=== PATIENT | female | born 1975 | race Caucasian/White ===

== ENCOUNTER 2023-03-19 00:31 | Emergency (ER) | payer OTHER ==
[~2023-03-19] VITALS: Ht 165.1 cm; Wt 70.3 kg
--- NOTE | 2023-03-19 00:31 | NUR ---
ARRIVAL PT INTO ER VIA EMS GURNEY WITH NO DISTRESS ON RA. C/O JAW PAIN AND NAUSEA THAT STARTED APPROX 1 HOUR AGO. PT HAS HISTORY OF HEART ATTACK AND CARDIAC STENT 2 YEARS AGO. PT WAS SEEN IN [facility] ER FOR SIMILIAR SYMPTOMS YESTERDAY WITH NO ACUTE FINDINGS. PT TOOK NITRO 0.4MG AT HOME. EMS ADMINISTERED NITRO 0.4MG X2, ZOFRAN 4MG, AND ASPIRIN 324MG. HISTORY AND STATUS OBTAINED. VS AND ASSESSMENT COMPLETE CHARTED. DR BIRD NOTIFIED OF PT ARRIVAL.
[2023-03-19 01:01] VITALS: BP 148/88
[2023-03-19] MEDS ORDERED: PHENERGAN ONE (01:19)
--- NOTE | 2023-03-19 01:20 | NUR ---
medical field representative PHENERGAN 25MG IV ADMINISTERED AT THIS TIME FOR NAUSEA PER VERBAL ORDER DR BIRD
[2023-03-19 01:23] LABS: MEAN CORP HGB 27.8 pg (26-34)
[2023-03-19 01:24] LABS: BASOPHIL % 1.2 % (0.0-0.2); LYMPHOCYTES % 25.3 % (24.0-44.0); MONOCYTES % 8.2 % (5.0-12.0); NEUTROPHIL # 5.7 10^3/uL (1.8-7.7); NEUTROPHILS % 63.2 % (41.0-85.0); PLATELET COUNT 234 10^3/uL (150-400)
[2023-03-19 01:25] LABS: BASOPHIL # 0.1 10^3/uL (0.0-0.1); EOSINOPHIL # 0.2 10^3/uL (0.0-0.2); LYMPHOCYTES # 2.28 10^3/uL1 (1.0-4.8); MONOCYTES # 0.7 10^3/uL (0.3-0.8)
--- NOTE | 2023-03-19 01:29 | DIREP ---
PROCEDURE:CHEST 1 VIEW COMPARISON:None. INDICATIONS:JAW PAIN FINDINGS: LUNGS/PLEURA:No significant pulmonary parenchymal abnormalities. No effusions. No pneumothorax. VASCULATURE:Normal. Unremarkable pulmonary vasculature. CARDIAC:Normal. No cardiac silhouette abnormality or cardiomegaly. MEDIASTINUM:Normal. No visible mass or adenopathy. BONES:Partially visualized cervical spine fixation hardware. OTHER:Negative. CONCLUSION:No acute pulmonary process. Dictated by: [place] Tripathi M.D. on 03/19/2023 at 01:25 AM
[2023-03-19 02:38] LABS: CARBON DIOXIDE 26.4 mmol/L (20.0-32)
--- NOTE | 2023-03-19 11:25 | PCM.EKG ---
[facility] Test Date: 2023-03-19 Pat Name: LORI LENTZ Department: ER Room: Gender: Female Steelworker: ARISTIDES : [id number] Requested By: KAYLEEN TRIPLETT Order Number: [id number] Reading MD: Amadeo Triplett Measurements Intervals [place] Rate: 67 P: 37 PA: 154 QRS: 73 QRSD: 100 T: 48 QT: 395 QTc: 417 Interpretive Statements Sinus rhythm No previous ECG available for comparison Electronically Signed On 03-21-2023 06:40:57 CDT by Amadeo Tirplett Please click the below link to view image of tracing.
== END 2023-03-19 03:45 | disposition home or self-care (01) ==
LOC: ER 00:31 → EDBD 00:31 → ER 03:45
DX: R68.84 Jaw pain (principal); I10 Essential (primary) hypertension; I25.2 Old myocardial infarction
CPT/HCPCS: 99285; 71045; 80053; 85025; 36415; 84484; 82553; 83880; 82550; 85610; 85730; 93005; J2550

== ENCOUNTER 2024-01-01 16:55 | Emergency (ER) | payer OTHER ==
[~2024-01-01] VITALS: Ht 165.1 cm; Wt 72.6 kg
[2024-01-01 17:00] VITALS: BP 165/103; PULSE 89; RESP 18; TEMP 98.2; O2SAT 99
[2024-01-01 17:36] LABS: BASOPHIL # 0.1 10^3/uL (0.0-0.1); EOSINOPHIL # 0.1 10^3/uL (0.0-0.2); EOSINOPHIL % 0.9 % (0.0-5.0); HEMATOCRIT(ML) 41.4 % (36.0-46.0); HEMOGLOBIN 13.6 g/dL (12.0-15.0); LYMPHOCYTES # 2.22 10^3/uL1 (1.0-4.8); LYMPHOCYTES % 25.6 % (24.0-44.0); MEAN CORP HGB CONCENTRATION 32.9 g/dL (33-36.5); MEAN CORP VOLUME 85.2 fL (78-100); MONOCYTES # 0.5 10^3/uL (0.3-0.8); MONOCYTES % 6.1 % (5.0-12.0); NEUTROPHIL # 5.7 10^3/uL (1.8-7.7); NEUTROPHILS % 66.3 % (41.0-85.0); PLATELET COUNT 235 10^3/uL (150-400); RED BLOOD CELL 4.86 10^6/uL (4.00-5.20); RED CELL DISTRIBUTION WIDTH 12.9 % (11.5-14.5); WHITE BLOOD CELL 8.7 10^3/uL (4.5-11.0)
[2024-01-01 17:37] LABS: +ADD MANUAL DIFF(NO CHRG) NO
[2024-01-01 17:56] LABS: ALANINE AMINOTRANSFERASE(ML) 19 U/L (12-78); ALBUMIN(ML) 3.5 g/dL (3.4-5.0); ALBUMIN/GLOBULIN RATIO 0.897; ALKALINE PHOSPHATASE 92 U/L (50-136); ANION GAP 12.1; ASPARTATE AMINO TRANSFERASE 16 U/L (0-35); CALCIUM 8.8 mg/dL (8.4-10.5); CARBON DIOXIDE 26.6 mmol/L (20.0-32); CREATININE SERUM 0.86 mg/dL (0.59-1.40); GLUCOSE 96 mg/dL (74-106); POTASSIUM 3.7 mmol/L (3.6-5.2); SODIUM 139 mmol/L (132-145)
[2024-01-01 17:57] LABS: TROPONIN I HIGH SENSITIVITY < 4 ng/L (0-50)
[2024-01-01 18:19] VITALS: BP 130/80; PULSE 80; RESP 18; O2SAT 98
== END 2024-01-01 18:21 | disposition home or self-care (01) ==
LOC: ER 16:55
DX: R06.02 Shortness of breath (principal); I10 Essential (primary) hypertension; I25.2 Old myocardial infarction; Z88.0 Allergy status to penicillin; F17.290 Nicotine dependence, other tobacco product, uncomplicated; Z98.890 Other specified postprocedural states
CPT/HCPCS: 36415; 71046; 80053; 84484; 84703; 85025; 93005; 99285

== ENCOUNTER 2024-02-09 15:09 | Emergency (ER) | payer OTHER ==
[~2024-02-09] VITALS: Ht 167.6 cm; Wt 63.5 kg
[2024-02-09 15:34] VITALS: BP 146/88; PULSE 85; RESP 18; TEMP 97.8; O2SAT 98
[2024-02-09 16:04] LABS: BASOPHIL # 0.1 10^3/uL (0.0-0.1); BASOPHIL % 0.9 % (0.0-0.2); EOSINOPHIL # 0.1 10^3/uL (0.0-0.2); EOSINOPHIL % 1.1 % (0.0-5.0); HEMATOCRIT(ML) 38.6 % (36.0-46.0); HEMOGLOBIN 12.4 g/dL (12.0-15.0); LYMPHOCYTES # 1.68 10^3/uL1 (1.0-4.8); LYMPHOCYTES % 22.2 % (24.0-44.0); MEAN CORP HGB CONCENTRATION 32.1 g/dL (33-36.5); MEAN CORP VOLUME 87.1 fL (78-100); MONOCYTES # 0.6 10^3/uL (0.3-0.8); MONOCYTES % 7.8 % (5.0-12.0); NEUTROPHIL # 5.1 10^3/uL (1.8-7.7); NEUTROPHILS % 67.9 % (41.0-85.0); PLATELET COUNT 241 10^3/uL (150-400); RED BLOOD CELL 4.43 10^6/uL (4.00-5.20); WHITE BLOOD CELL 7.6 10^3/uL (4.5-11.0)
[2024-02-09 16:05] LABS: +ADD MANUAL DIFF(NO CHRG) NO
[2024-02-09 16:24] LABS: ALANINE AMINOTRANSFERASE(ML) 20 U/L (12-78); ALBUMIN/GLOBULIN RATIO 0.425; ALKALINE PHOSPHATASE 83 U/L (50-136); ANION GAP 9.9; ASPARTATE AMINO TRANSFERASE 13 U/L (0-35); CALCIUM 8.2 mg/dL (8.4-10.5); CREATINE KINASE 58 U/L (26-192); CREATININE SERUM 0.86 mg/dL (0.59-1.40); GLUCOSE 98 mg/dL (74-106); POTASSIUM 3.9 mmol/L (3.6-5.2); SODIUM 139 mmol/L (132-145); TROPONIN I HIGH SENSITIVITY < 4 ng/L (0-50)
[2024-02-09 16:39] VITALS: BP 128/87; PULSE 83; RESP 18; TEMP 97.8; O2SAT 98
[2024-02-09 17:00] VITALS: BP 140/91; PULSE 84; RESP 20; TEMP 97.8; O2SAT 99
== END 2024-02-09 17:00 | disposition short-term general hospital (02) ==
LOC: EDBD 15:09 → ER 15:09
DX: I49.9 Cardiac arrhythmia, unspecified (principal); I10 Essential (primary) hypertension; I25.2 Old myocardial infarction; Z88.0 Allergy status to penicillin
CPT/HCPCS: 36415; 71045; 80053; 82550; 84484; 85025; 93005; 99285